=== PATIENT | male | born 1970 | race Caucasian/White ===

== ENCOUNTER 2019-08-24 17:51 | Emergency (ER) | payer OTHER, SELFPAY ==
[2019-08-24 17:53] VITALS: BP 162/106; PULSE 97; RESP 16; TEMP 36.6; O2SAT 95; BMI 29.5
--- NOTE | 2019-08-24 18:19 | ED.DCSUM_ITS ---
- ER Visit Summary Date of Service: 08/24/19 Chief Complaint: Laceration History of Present Illness: The patient is a 49 M who cut his left hand prior to arrival. Unsure of tetanus status. Physical Examination: 1 cm laceration to left hand at the webbing of his thumb. This is superficial. There are no deep structures involved. Good strength, sensation, range of motion. Test Results: None indicated, the patient has no concern for foreign body. Emergency Department Course and Treatment: Tetanus updated. Wound was anesthetized with 2 cc of lidocaine. Irrigated. Explored. Closed with 2 simple interrupted sutures. Wound care instructions given. Follow-up in 10 to 14 days for removal. Follow-up sooner if signs of infection develop. Treatment Plan: As above Disposition: Discharge, return work Impression: Laceration left hand, 1 cm This note was generated with [employer] dictation software. It may contain incorrect words, spelling, and punctuation that were not noted in review of the chart prior to signing ED Disposition - Plan for ED Patient: Referrals: [facility] Doctor,Out of [Primary Care Provider] -
--- NOTE | 2019-08-24 18:20 | ED.DEP ---
ED Disposition - Plan for ED Patient: Instructions: ED Laceration Hand Referrals: [facility] [GROUP OF PHYSICIANS] - 10-14 Days suture removal
[2019-08-24] MEDS: Diphth,Pertuss(Acell),Tet Vac 0.5 ML Vial IM (18:23)
== END 2019-08-24 18:41 | disposition home or self-care (01) ==
LOC: ED 18:23
PROVIDERS: Emergency Provider Emergency Medicine
DX: S61.412A Laceration without foreign body of left hand, initial encounter (principal); X58.XXXA Exposure to other specified factors, initial encounter
CPT/HCPCS: 12001; 90715; 99282